=== PATIENT | female | born 1975 | race Two or more races ===

== ENCOUNTER 2019-12-15 14:30 | Inpatient (IN) | payer BC ==
[~2019-12-15] VITALS: Ht 160 cm; Wt 71.6 kg
[2019-12-15] MEDS ORDERED: SODIUM CHLORIDE 0.9% 500 ML IV ONE (14:43)
[2019-12-15 15:10] LABS: Eosinophils # (auto) 0 10 ^3/uL (0-0.8); Lymphocytes # (auto) 1.4 10 ^3/uL (0.4-5.4); Mean Corpuscular Hemoglobin 17.7 pg (28.0-32.0); Neutrophils # (auto) 3.4 10 ^3/uL (1.6-8.6); White Blood Cell 5.2 10^3/uL (4.4-10.8)
[2019-12-15 15:12] LABS: Basophils # (auto) 0 10 ^3/uL (0-0.2); Basophils % (auto) 0.8 % (0.0-2.0); Eosinophils % (auto) 0.5 % (0.0-7.0); Hematocrit 23.6 % (36.0-46.0); Lymphocytes % (auto) 26.9 % (10.0-50.0); Mean Corpuscular Hgb Conc. 29.2 g/dL (32.0-36.0); Mean Corpuscular Volume 60.5 fL (80.0-100.0); Monocytes # (auto) 0.3 10 ^3/uL (0-1.3); Monocytes % (auto) 6.4 % (0.0-12.0); Neutrophils % (auto) 65.4 % (37.0-80.0); Platelet Count (auto) 380 10^3/uL (140-450); Red Blood Cells 3.89 10^6/uL (4.0-5.20)
[2019-12-15 15:18] LABS: Red Cell Distribution Width 20.1 % (11.8-14.3)
[2019-12-15 15:21] LABS: Hemoglobin 6.9 g/dL (12.2-16.2)
[2019-12-15 15:25] LABS: INR 0.97 (0.9-1.15); Partial Thromboplastin Time 24.7 sec (23.64-32.05)
[2019-12-15 15:30] LABS: Albumin 4.1 g/dL (3.4-5.0); Calcium 8.4 mg/dL (8.5-10.1); Potassium 3.6 mmol/L (3.5-5.1)
[2019-12-15 15:34] LABS: BUN/Creatinine Ratio 25.6; Bilirubin, Total 0.4 mg/dL (0.2-1.0)
[2019-12-15] MEDS ORDERED: NITROGLYCERIN 0.4 MG SL TAB SL PRN ×2 (16:15→16:45)
[2019-12-15] MEDS ORDERED: MORPHINE SULF INJ 2 MG/ML SYRINGE 1ML IV PRN ×3 (16:15→16:45)
[2019-12-15] MEDS ORDERED: ONDANSETRON HCL 4 MG/2 ML VIAL IV PRN (16:45)
[2019-12-15] MEDS ORDERED: HYDROcodone-ACET 5/325MG TAB PO PRN (16:45)
[2019-12-15] MEDS ORDERED: LORazepam 0.5 MG TAB PO PRN (16:45)
[2019-12-15] MEDS ORDERED: DOCUSATE SOD 100 MG CAP PO PRN (16:45)
[2019-12-15 16:55] LABS: % Iron Saturation 3.1 % (15-50)
[2019-12-15] MEDS: SODIUM CHLORIDE 0.9% 1,000 ML IV SCH (17:00)
[2019-12-15 17:12] LABS: Folate (Folic Acid) 12.93 ng/mL (5.38-24)
[2019-12-15 17:16] LABS: Cholesterol 193 mg/dL (< 200); HDL Cholesterol 59 mg/dL (40-59); LDL Cholesterol 118 mg/dL (< 100); Triglycerides 136 mg/dL (< 150)
--- NOTE | 2019-12-15 17:40 | NUR ---
Telemetry admit from ER MELISSA SHELDON admitted to Telemetry unit. Patient oriented to Jeimy rodriguez RN, unit, room, bed, and unit policies regarding patient care and visiting hours. Instructed patient on POC, fall precautions and to call for assistance as needed. Patient verbalized understanding. Fall precautions in place with call light within reach.
[2019-12-15] MEDS ORDERED: FUROSEMIDE 20 MG/2 ML VIAL IV SCH (18:00)
[2019-12-15] MEDS ORDERED: PHEN1TAB64 PO (18:23)
[2019-12-15 18:31] VITALS: BP 106/65
--- NOTE | 2019-12-15 18:31 | NUR ---
Blood transfusion started per MD order Patient instructed on s/s to report to staff. Patient verbalized understanding. Patient denies SOB, CP, N/V, or pain. Respirations even and unlabored, no distress noted. Fall precautions in place with call light within reach.
[2019-12-15 18:51] VITALS: BP 110/68
--- NOTE | 2019-12-15 19:16 | NUR ---
Closing note/care endorsed to OSVALDO Zaragoza. Patient resting in bed with even and unlabored respirations, no distress noted. Blood transfusion infusing per MD order. Patient tolerating well. Patient denies s/s of blood transfusion reaction. Fall precautions in place with call light within reach.
--- NOTE | 2019-12-15 19:20 | NUR ---
Opening Shift Note Received report from Jeimy RILEY. Assumed care of patient, awake and alert with ongoing blood transfusion. No S/S of distress/SOB or pain. Instructed on POC and to call for assist PRN, will continue to monitor for changes Q1hr and PRN.
[2019-12-15] MEDS ORDERED: FUROSEMIDE 20 MG/2 ML VIAL IV ONE (20:00)
[2019-12-15 22:00] VITALS: BP 99/59
[2019-12-15 22:17] LABS: Urine Bacteria FEW /hpf (None Seen); Urine Blood Negative /uL (Negative); Urine Specific Gravity 1.011 (1.001-1.035); Urine WBC <1 /hpf (0 - 5)
[2019-12-15 22:32] LABS: Alcohol, Urine < 3.0 mg/dL (0-10); Amphetamine Screen, Urine NEGATIVE (NEGATIVE); Barbiturate Scree,Urine NEGATIVE (NEGATIVE); Benzodiazephine Screen, Urine NEGATIVE (NEGATIVE); Cannabinoid Screen, Urine NEGATIVE (NEGATIVE); Cocaine Screen, Urine NEGATIVE (NEGATIVE); Opiate Scree,Urine NEGATIVE (NEGATIVE); Phencyclidine Screen, Urine NEGATIVE (NEGATIVE)
[2019-12-15 22:42] VITALS: BP 112/58
--- NOTE | 2019-12-15 22:43 | NUR ---
Patient requested CBC to be drawn at 0500. Post transfusion vitals taken, within normal limit. Continue care.
[2019-12-16] MEDS ORDERED: ACETAMINOPHEN 325 MG TAB PO ONE (02:00)
[2019-12-16 05:00] VITALS: BP 100/59
[2019-12-16] MEDS: SODIUM CHLORIDE 0.9% 1,000 ML IV SCH (06:30)
[2019-12-16 07:15] LABS: Basophils # (auto) 0 10 ^3/uL (0-0.2); Eosinophils # (auto) 0 10 ^3/uL (0-0.8); Lymphocytes # (auto) 1.4 10 ^3/uL (0.4-5.4); Monocytes # (auto) 0.3 10 ^3/uL (0-1.3); Neutrophils # (auto) 2.4 10 ^3/uL (1.6-8.6); White Blood Cell 4.2 10^3/uL (4.4-10.8)
[2019-12-16 07:17] LABS: Basophils % (auto) 0.8 % (0.0-2.0); Eosinophils % (auto) 0.9 % (0.0-7.0); Hemoglobin 7.8 g/dL (12.2-16.2); Lymphocytes % (auto) 34.3 % (10.0-50.0); Mean Corpuscular Hemoglobin 19.6 pg (28.0-32.0); Mean Corpuscular Hgb Conc. 30.1 g/dL (32.0-36.0); Mean Corpuscular Volume 65.1 fL (80.0-100.0); Platelet Count (auto) 322 10^3/uL (140-450)
[2019-12-16 07:30] LABS: Red Cell Distribution Width 24.3 % (11.8-14.3)
[2019-12-16 07:31] LABS: Albumin 3.3 g/dL (3.4-5.0); Calcium 7.5 mg/dL (8.5-10.1); Magnesium 2.3 mg/dL (1.6-2.6); Potassium 3.6 mmol/L (3.5-5.1)
[2019-12-16 07:36] LABS: BUN/Creatinine Ratio 26.8; Bilirubin, Total 0.4 mg/dL (0.2-1.0); Phosphorus 3.2 mg/dL (2.5-4.90); Total Protein 6.8 g/dL (6.4-8.2)
[2019-12-16 07:42] LABS: % Iron Saturation 2.5 % (15-50)
[2019-12-16 07:52] LABS: INR 0.97 (0.9-1.15); Partial Thromboplastin Time 23.9 sec (23.64-32.05)
--- NOTE | 2019-12-16 08:00 | NUR ---
Morning note Patient resting in bed with even and unlabored respirations, no distress noted. Instructed patient on POC, fall precautions and to call for assistance as needed. Patient verbalized understanding. Fall precautions in place with call light within reach.
[2019-12-16 08:15] LABS: Ferritin 2.1 ng/mL (10-322); Folate (Folic Acid) 8.52 ng/mL (5.38-24)
[2019-12-16 09:00] VITALS: BP 104/61
--- NOTE | 2019-12-16 11:42 | NUR ---
Est energy needs 4267-0305 kcal (25-27 kcal/kg BW 71.6kg) est protein needs 58-72g (0.8-1g/kg BW 71.8kg) Will reassess jacin. Addendum: 12/16/19 at [address] Amended: Links added.
[2019-12-16] MEDS ORDERED: SODIUM FERR GLUC 125 MG in NS 100 ML IV SCH (12:00)
[2019-12-16] MEDS ORDERED: IRON SUCROSE COMPLEX 200 MG in SODIUM CHL 0.9% 100 ML IV SCH ×4 (12:00)
[2019-12-16] MEDS ORDERED: SODIUM CHL 0.9% IV SCH (12:00)
[2019-12-16] MEDS ORDERED: IRON SUCROSE COMPLEX IV SCH (12:00)
--- NOTE | 2019-12-16 12:05 | NUR ---
was at bedside - Dr. Castillo This RN was at bedside.
[2019-12-16] MEDS ORDERED: FER325T PO (12:14)
--- NOTE | 2019-12-16 12:25 | NUR ---
YEIMI discussed with MD Zander Julio
--- NOTE | 2019-12-16 12:40 | NUR ---
RE: Medication not available - called pharmacy Called pharmacy to notify that scheduled medication not available. Medication to be delivered to unit per pharmacist.
[2019-12-16 13:00] VITALS: BP 115/58
--- NOTE | 2019-12-16 13:16 | NUR ---
Patient resting in bed with even and unlabored respirations, no distress noted. Fall precautions in place with call light within reach.
--- NOTE | 2019-12-16 14:57 | NUR ---
Discharge Discharge education and paperwork provided to the patient per MD order. Patient verbalized understanding. IV removed with clean technique, catheter intact. Dressing applied. Patient tolerated, no trauma to site. Telemonitor removed and returned to telemonitor tech. Patient reports having all personal belongings. Respirations even and unlabored, no distress noted. Patient refused wheelchair. Patient ambulated with steady gait to hospital lobby.
== END 2019-12-16 15:00 | disposition home or self-care (01) | DRG 812 ==
LOC: ER 14:30 → TELE 14:31 → TELE-WESTW 17:40
PROVIDERS: ADMIT Hospitalist; ATTEND Internal Medicine
PROC: 30233N1 Transfusion of Nonautologous Red Blood Cells into Peripheral Vein, Percutaneous Approach (ICD-10-PCS; principal; 2019-12-15)
DX: D50.0 Iron deficiency anemia secondary to blood loss (chronic) (principal); N92.0 Excessive and frequent menstruation with regular cycle; Z80.0 Family history of malignant neoplasm of digestive organs; Z82.3 Family history of stroke; Z82.49 Family history of ischemic heart disease and other diseases of the circulatory system; Z97.5 Presence of (intrauterine) contraceptive device; Z83.3 Family history of diabetes mellitus; Z98.84 Bariatric surgery status
CPT/HCPCS: 36415; 76830; 76856; 80053; 80061; 80307; 81001; 82607; 82728; 82746; 83010; 83036; 83540; 83550; 83615; 83735; 84100; 84443; 84484; 85025; 85045; 85610; 85652; 85730; 86850; 86880; 86900; 86901; 86920; 87086; G0378; J1756

== ENCOUNTER → 2019-12-15 | Outpatient (CLI) | payer BC ==
[~2019-12-15] MED LIST: FER325T PO; PHEN1TAB64 PO
[2019-12-15 12:30] LABS: Basophils # (auto) 0 10 ^3/uL (0-0.2); Eosinophils # (auto) 0 10 ^3/uL (0-0.8); Eosinophils % (auto) 0.8 % (0.0-7.0); Monocytes # (auto) 0.3 10 ^3/uL (0-1.3); Neutrophils # (auto) 2.3 10 ^3/uL (1.6-8.6)
[2019-12-15 12:32] LABS: Basophils % (auto) 0.6 % (0.0-2.0); Hematocrit 22.2 % (36.0-46.0); Lymphocytes # (auto) 1.6 10 ^3/uL (0.4-5.4); Lymphocytes % (auto) 37.5 % (10.0-50.0); Mean Corpuscular Hemoglobin 17.5 pg (28.0-32.0); Mean Corpuscular Hgb Conc. 29.1 g/dL (32.0-36.0); Mean Corpuscular Volume 60.2 fL (80.0-100.0); Monocytes % (auto) 7.2 % (0.0-12.0); Neutrophils % (auto) 53.9 % (37.0-80.0); Platelet Count (auto) 357 10^3/uL (140-450); Red Blood Cells 3.69 10^6/uL (4.0-5.20); Red Cell Distribution Width 19.8 % (11.8-14.3); White Blood Cell 4.3 10^3/uL (4.4-10.8)
[2019-12-15 12:43] LABS: Urine Bacteria NONE SEEN /hpf (None Seen); Urine Blood Negative /uL (Negative); Urine Mucus FEW (None Seen); Urine Specific Gravity 1.026 (1.001-1.035); Urine WBC 1 /hpf (0 - 5)
[2019-12-15 12:55] LABS: Hemoglobin 6.5 g/dL (12.2-16.2)
[2019-12-15 13:04] LABS: Albumin 3.9 g/dL (3.4-5.0); BUN/Creatinine Ratio 31.1; Calcium 8.4 mg/dL (8.5-10.1); Magnesium 2.2 mg/dL (1.6-2.6); Potassium 3.4 mmol/L (3.5-5.1); Uric Acid 3.6 mg/dL (2.6-6.0)
[2019-12-15 13:07] LABS: Bilirubin, Total 0.5 mg/dL (0.2-1.0); Total Protein 7.7 g/dL (6.4-8.2)
[2019-12-15 13:11] LABS: Free T3 3.32 pg/mL (2.3-4.2); Free T4 (Free Thyroxine) 1.03 ng/dL (0.89-1.76)
== END | disposition home or self-care (01) ==
LOC: LAB 12:11
DX: Z00.00 Encounter for general adult medical examination without abnormal findings (principal); F51.01 Primary insomnia
CPT/HCPCS: 36415; 80053; 80061; 81001; 82306; 82607; 83036; 83540; 83735; 84439; 84443; 84481; 84550; 85025

== ENCOUNTER → 2019-12-22 | Outpatient (CLI) | payer BC ==
[~2019-12-22] MED LIST changes: -PHEN1TAB64 PO; +PHEN37.563 PO
[2019-12-22 16:48] LABS: Basophils # (auto) 0 10 ^3/uL (0-0.2); Basophils % (auto) 0.8 % (0.0-2.0); Eosinophils # (auto) 0.1 10 ^3/uL (0-0.8); Hemoglobin 8.8 g/dL (12.2-16.2); Monocytes # (auto) 0.5 10 ^3/uL (0-1.3)
[2019-12-22 16:50] LABS: Hematocrit 29.4 % (36.0-46.0); Mean Corpuscular Volume 66.6 fL (80.0-100.0); Monocytes % (auto) 8.2 % (0.0-12.0); Platelet Count (auto) 310 10^3/uL (140-450); Red Blood Cells 4.42 10^6/uL (4.0-5.20); White Blood Cell 5.6 10^3/uL (4.4-10.8)
[2019-12-22 16:53] LABS: Red Cell Distribution Width 27.9 % (11.8-14.3)
[2019-12-22 17:06] LABS: Albumin 3.6 g/dL (3.4-5.0); BUN/Creatinine Ratio 30.4; Calcium 7.7 mg/dL (8.5-10.1); Potassium 3.3 mmol/L (3.5-5.1)
[2019-12-22 17:08] LABS: Bilirubin, Total 0.3 mg/dL (0.2-1.0); Total Protein 7.4 g/dL (6.4-8.2)
[2019-12-22 17:28] LABS: Ferritin 19.9 ng/mL (10-322)
[2019-12-22 17:29] LABS: Folate (Folic Acid) 9.39 ng/mL (5.38-24)
== END | disposition home or self-care (01) ==
LOC: LAB 16:25
DX: D64.9 Anemia, unspecified (principal)
CPT/HCPCS: 36415; 80053; 82607; 82728; 82746; 83540; 85025; 85045

== ENCOUNTER → 2020-02-03 | Outpatient (CLI) | payer OTHER | END | disposition home or self-care (01) | LOC: LAB 17:16 | PROVIDERS: ATTEND Nurse Practitioner Family | DX: U07.1 COVID-19 (principal) ==

== ENCOUNTER → 2020-05-08 | Outpatient (CLI) | payer BC ==
[2020-05-08 08:33] LABS: Basophils # (auto) 0 10 ^3/uL (0-0.2); Basophils % (auto) 0.8 % (0.0-2.0); Eosinophils # (auto) 0 10 ^3/uL (0-0.8); Hemoglobin 8.9 g/dL (12.2-16.2); Lymphocytes # (auto) 1.6 10 ^3/uL (0.4-5.4); Monocytes # (auto) 0.3 10 ^3/uL (0-1.3)
[2020-05-08 08:37] LABS: Eosinophils % (auto) 1.2 % (0.0-7.0); Hematocrit 28.7 % (36.0-46.0); Lymphocytes % (auto) 43.1 % (10.0-50.0); Mean Corpuscular Hemoglobin 22.7 pg (28.0-32.0); Mean Corpuscular Hgb Conc. 31.1 g/dL (32.0-36.0); Mean Corpuscular Volume 73.1 fL (80.0-100.0); Monocytes % (auto) 7.9 % (0.0-12.0); Neutrophils # (auto) 1.7 10 ^3/uL (1.6-8.6); Platelet Count (auto) 258 10^3/uL (140-450); Red Blood Cells 3.93 10^6/uL (4.0-5.20); Red Cell Distribution Width 18.3 % (11.8-14.3); White Blood Cell 3.7 10^3/uL (4.4-10.8)
[2020-05-08 08:43] LABS: Calcium 8.4 mg/dL (8.5-10.1); Magnesium 2.1 mg/dL (1.6-2.6); Potassium 3.5 mmol/L (3.5-5.1); Uric Acid 2.8 mg/dL (2.6-6.0)
[2020-05-08 08:44] LABS: Urine Bacteria MANY /hpf (None Seen); Urine Blood TRACE /uL (Negative); Urine Mucus MODERATE (None Seen); Urine WBC 60 /hpf (0 - 5)
[2020-05-08 08:48] LABS: BUN/Creatinine Ratio 23.5; Bilirubin, Total 0.4 mg/dL (0.2-1.0); Total Protein 7.6 g/dL (6.4-8.2)
[2020-05-08 08:50] LABS: INR 0.97 (0.9-1.15)
[2020-05-08 09:08] LABS: Free T4 (Free Thyroxine) 0.87 ng/dL (0.89-1.76)
[2020-05-08 09:09] LABS: Free T3 3.41 pg/mL (2.3-4.2); T3 Total 0.97 ng/mL (0.60-1.81)
== END | disposition home or self-care (01) ==
LOC: LAB 07:58
DX: Z13.21 Encounter for screening for nutritional disorder (principal); Z13.29 Encounter for screening for other suspected endocrine disorder; Z13.228 Encounter for screening for other metabolic disorders; D51.0 Vitamin B12 deficiency anemia due to intrinsic factor deficiency; R53.1 Weakness; E03.9 Hypothyroidism, unspecified; N39.0 Urinary tract infection, site not specified; R73.09 Other abnormal glucose; Z87.440 Personal history of urinary (tract) infections; Z79.890 Hormone replacement therapy
CPT/HCPCS: 36415; 80053; 80061; 81001; 82306; 82607; 83036; 83540; 83615; 83735; 84439; 84443; 84480; 84481; 84550; 85025; 85610; 87086

== ENCOUNTER → 2020-08-23 | Outpatient (CLI) | payer BC ==
[2020-08-23 08:45] LABS: INR 0.97 (0.9-1.15)
[2020-08-23 09:04] LABS: Potassium 3.7 mmol/L (3.5-5.1)
[2020-08-23 09:11] LABS: Free T4 (Free Thyroxine) 0.82 ng/dL (0.89-1.76)
[2020-08-23 09:12] LABS: Free T3 3.14 pg/mL (2.3-4.2); T3 Total 0.93 ng/mL (0.60-1.81)
[2020-08-23 09:13] LABS: Albumin 3.7 g/dL (3.4-5.0); BUN/Creatinine Ratio 24.6; Bilirubin, Total 0.4 mg/dL (0.2-1.0); Calcium 8.1 mg/dL (8.5-10.1); Folate (Folic Acid) 10.89 ng/mL (5.38-24); Phosphorus 2.8 mg/dL (2.5-4.90); Total Protein 7.3 g/dL (6.4-8.2); Uric Acid 2.9 mg/dL (2.6-6.0)
== END | disposition home or self-care (01) ==
LOC: LAB 07:54
PROVIDERS: ATTEND Internal Medicine
DX: Z13.220 Encounter for screening for lipoid disorders (principal); R74.02 Elevation of levels of lactic acid dehydrogenase [LDH]; R82.90 Unspecified abnormal findings in urine; E07.9 Disorder of thyroid, unspecified
CPT/HCPCS: 36415; 80053; 80061; 82306; 82607; 82746; 83036; 83540; 83615; 84100; 84439; 84443; 84480; 84481; 84550; 85018; 85610

== ENCOUNTER → 2020-09-11 | Outpatient (CLI) | payer BC ==
[2020-09-11 11:17] LABS: Basophils # (auto) 0 10 ^3/uL (0-0.2); Eosinophils # (auto) 0 10 ^3/uL (0-0.8); Lymphocytes # (auto) 1.8 10 ^3/uL (0.4-5.4); Mean Corpuscular Hgb Conc. 30.2 g/dL (32.0-36.0); Neutrophils # (auto) 3.5 10 ^3/uL (1.6-8.6); Platelet Count (auto) 215 10^3/uL (140-450); White Blood Cell 5.7 10^3/uL (4.4-10.8)
[2020-09-11 11:19] LABS: Basophils % (auto) 0.6 % (0.0-2.0); Eosinophils % (auto) 0.6 % (0.0-7.0); Hematocrit 26.9 % (36.0-46.0); Hemoglobin 8.1 g/dL (12.2-16.2); Lymphocytes % (auto) 31.6 % (10.0-50.0); Mean Corpuscular Hemoglobin 19.6 pg (28.0-32.0); Mean Corpuscular Volume 64.7 fL (80.0-100.0); Monocytes # (auto) 0.4 10 ^3/uL (0-1.3); Monocytes % (auto) 6.3 % (0.0-12.0); Neutrophils % (auto) 60.9 % (37.0-80.0); Nucleated Red Blood Cells % 0.1 %; Red Blood Cells 4.15 10^6/uL (4.0-5.20)
[2020-09-11 11:56] LABS: Leuteinizing Hormone 0.9 IU/L
[2020-09-11 11:57] LABS: Follicle Stimulating Hormone 1.81 IU/L (SEE BELOW)
== END | disposition home or self-care (01) ==
LOC: LAB 10:47
PROVIDERS: ATTEND Obstetrics & Gynecology
DX: N93.9 Abnormal uterine and vaginal bleeding, unspecified (principal)
CPT/HCPCS: 36415; 82670; 83001; 83002; 84403; 84443; 85025

== ENCOUNTER → 2020-09-24 | Day surgery (SDC) | payer BC ==
[2020-09-18 13:02] LABS: Basophils # (auto) 0 10 ^3/uL (0-0.2); Mean Corpuscular Hgb Conc. 30.6 g/dL (32.0-36.0); Monocytes # (auto) 0.4 10 ^3/uL (0-1.3); Neutrophils # (auto) 3.1 10 ^3/uL (1.6-8.6)
[2020-09-18 13:04] LABS: Basophils % (auto) 0.8 % (0.0-2.0); Eosinophils # (auto) 0 10 ^3/uL (0-0.8); Eosinophils % (auto) 0.9 % (0.0-7.0); Hematocrit 24.4 % (36.0-46.0); Hemoglobin 7.5 g/dL (12.2-16.2); Lymphocytes # (auto) 1.7 10 ^3/uL (0.4-5.4); Lymphocytes % (auto) 32.9 % (10.0-50.0); Mean Corpuscular Hemoglobin 19.7 pg (28.0-32.0); Mean Corpuscular Volume 64.6 fL (80.0-100.0); Monocytes % (auto) 7.2 % (0.0-12.0); Neutrophils % (auto) 58.2 % (37.0-80.0); Nucleated Red Blood Cells % 0.1 %; Platelet Count (auto) 296 10^3/uL (140-450); Red Blood Cells 3.78 10^6/uL (4.0-5.20); Red Cell Distribution Width 19.9 % (11.8-14.3); White Blood Cell 5.3 10^3/uL (4.4-10.8)
[2020-09-18 13:18] LABS: Urine Bacteria MOD /hpf (None Seen); Urine Blood Negative /uL (Negative); Urine Mucus FEW (None Seen); Urine Specific Gravity 1.026 (1.001-1.035); Urine WBC 1 /hpf (0 - 5)
[2020-09-18 13:30] LABS: INR 0.93 (0.9-1.15); Partial Thromboplastin Time 23.5 sec (23.0-31.2)
[2020-09-18 13:55] LABS: Albumin 3.6 g/dL (3.4-5.0); Calcium 7.8 mg/dL (8.5-10.1); Potassium 3.8 mmol/L (3.5-5.1)
[2020-09-18 13:59] LABS: BUN/Creatinine Ratio 27.4; Bilirubin, Total 0.3 mg/dL (0.2-1.0); Total Protein 7.1 g/dL (6.4-8.2)
[~2020-09-24] VITALS: Ht 160 cm; Wt 85.3 kg
[~2020-09-24] MED LIST changes: +DexAMETHasone SOD PHOS 10MG/1ML VIAL INJ ONE; +EPINEPHrine HCL 1 MG/10 ML SYRG ONE; +FAMOTIDINE (10MG/ML) 2ML VL IV ONE; +GLYCOPYRROLATE 0.2 MG/ML 1ML VIAL ONE; +HYDROmorphone HCL 2 MG/ML VL IV PRN; +KETOROLAC TROMETH 30 MG/ML 1ML VIAL ONE; +LACTATED RINGER'S 1,000 ML IV SCH; +LIDOCAINE 1% HCL (LOCAL ANESTH.) INJ 20ML MDV ONE; +LIDOCAINE 2% (LOCAL ANESTH.) PF 5ml SDV ONE; +MEPERIDINE HCL (25 MG/ML) 1ML VIAL ONE; +METOCLOPRAMIDE HCL 5MG/ml INJ 2ml VIAL IV PRN; +MIDAZOLAM HCL 1MG/1ML-2 ML VIAL ONE; +MORPHINE SULFATE 4 MG/ML SYR/VIAL IV PRN; +ONDANSETRON HCL 4 MG/2 ML VIAL IV PRN; +ONDANSETRON HCL 4 MG/2 ML VIAL ONE; -PHEN37.563 PO; +PROPOFOL 10 MG/ML 20 ML IV ONE; +ROCURONIUM 10MG/ML 10ML VIAL IV ONE; +SODIUM CHLORIDE LOCK 0 ML ONE; +SUCCINYLCHOLINE CHLORIDE 20 MG/ML 10ML VIAL IV ONE; +ceFAZolin 1GM VL ONE; +ceFAZolin 1GM/50ML 50 ML IV ONE; +fentaNYL CITRATE 100 MCG/2 ML VL ONE
[2020-09-24 13:27] LABS: Basophils # (auto) 0 10 ^3/uL (0-0.2); Eosinophils # (auto) 0.1 10 ^3/uL (0-0.8); Hematocrit 31.9 % (36.0-46.0); Lymphocytes # (auto) 2.3 10 ^3/uL (0.4-5.4); Mean Corpuscular Hemoglobin 22.3 pg (28.0-32.0); Monocytes # (auto) 0.4 10 ^3/uL (0-1.3); Monocytes % (auto) 7.7 % (0.0-12.0); Neutrophils # (auto) 2.4 10 ^3/uL (1.6-8.6)
[2020-09-24 13:29] LABS: Basophils % (auto) 0.6 % (0.0-2.0); Lymphocytes % (auto) 44.1 % (10.0-50.0); Mean Corpuscular Hgb Conc. 31.2 g/dL (32.0-36.0); Mean Corpuscular Volume 71.5 fL (80.0-100.0); Neutrophils % (auto) 46.6 % (37.0-80.0); Platelet Count (auto) 246 10^3/uL (140-450); Red Blood Cells 4.46 10^6/uL (4.0-5.20); White Blood Cell 5.2 10^3/uL (4.4-10.8)
[2020-09-24 14:50] VITALS: BP 119/55
== END | disposition home or self-care (01) ==
LOC: SUR 09-21 06:06
PROVIDERS: ATTEND Obstetrics & Gynecology
DX: D64.9 Anemia, unspecified (principal); O46.8X1 Other antepartum hemorrhage, first trimester; Z98.890 Other specified postprocedural states; Z20.822 Contact with and (suspected) exposure to COVID-19; Z79.899 Other long term (current) drug therapy; Z98.84 Bariatric surgery status; Z3A.09 9 weeks gestation of pregnancy
CPT/HCPCS: 36415; 36430; 58563; 80053; 81001; 84702; 85025; 85610; 85730; 86850; 86900; 86901; 86920; J0330; J0690; J1100; J1885; J2001; J2175; J2250; J2405; J2704; J3010; J3490; P9016; U0003

== ENCOUNTER → 2020-11-02 | Outpatient (CLI) | payer BC ==
[~2020-11-02] MED LIST changes: -DexAMETHasone SOD PHOS 10MG/1ML VIAL INJ ONE; -EPINEPHrine HCL 1 MG/10 ML SYRG ONE; -FAMOTIDINE (10MG/ML) 2ML VL IV ONE; -GLYCOPYRROLATE 0.2 MG/ML 1ML VIAL ONE; -HYDROmorphone HCL 2 MG/ML VL IV PRN; -KETOROLAC TROMETH 30 MG/ML 1ML VIAL ONE; -LACTATED RINGER'S 1,000 ML IV SCH; -LIDOCAINE 1% HCL (LOCAL ANESTH.) INJ 20ML MDV ONE; -LIDOCAINE 2% (LOCAL ANESTH.) PF 5ml SDV ONE; -MEPERIDINE HCL (25 MG/ML) 1ML VIAL ONE; -METOCLOPRAMIDE HCL 5MG/ml INJ 2ml VIAL IV PRN; -MIDAZOLAM HCL 1MG/1ML-2 ML VIAL ONE; -MORPHINE SULFATE 4 MG/ML SYR/VIAL IV PRN; -ONDANSETRON HCL 4 MG/2 ML VIAL IV PRN; -ONDANSETRON HCL 4 MG/2 ML VIAL ONE; -PROPOFOL 10 MG/ML 20 ML IV ONE; -ROCURONIUM 10MG/ML 10ML VIAL IV ONE; -SODIUM CHLORIDE LOCK 0 ML ONE; -SUCCINYLCHOLINE CHLORIDE 20 MG/ML 10ML VIAL IV ONE; -ceFAZolin 1GM VL ONE; -ceFAZolin 1GM/50ML 50 ML IV ONE; -fentaNYL CITRATE 100 MCG/2 ML VL ONE
[2020-11-02 10:57] LABS: Basophils # (auto) 0 10 ^3/uL (0-0.2); Eosinophils # (auto) 0.1 10 ^3/uL (0-0.8); Hemoglobin 11.3 g/dL (12.2-16.2); Lymphocytes # (auto) 1.9 10 ^3/uL (0.4-5.4); Monocytes # (auto) 0.4 10 ^3/uL (0-1.3)
[2020-11-02 10:59] LABS: Basophils % (auto) 0.6 % (0.0-2.0); Hematocrit 35.1 % (36.0-46.0); Lymphocytes % (auto) 33.4 % (10.0-50.0); Mean Corpuscular Hemoglobin 24.4 pg (28.0-32.0); Mean Corpuscular Hgb Conc. 32.2 g/dL (32.0-36.0); Mean Corpuscular Volume 75.8 fL (80.0-100.0); Monocytes % (auto) 6.8 % (0.0-12.0); Neutrophils # (auto) 3.3 10 ^3/uL (1.6-8.6); Neutrophils % (auto) 58.2 % (37.0-80.0); Red Blood Cells 4.63 10^6/uL (4.0-5.20); White Blood Cell 5.6 10^3/uL (4.4-10.8)
[2020-11-02 11:04] LABS: Urine Bacteria NONE SEEN /hpf (None Seen); Urine Blood Negative /uL (Negative); Urine Specific Gravity 1.018 (1.001-1.035); Urine WBC 1 /hpf (0 - 5)
[2020-11-02 11:06] LABS: Red Cell Distribution Width 28.3 % (11.8-14.3)
[2020-11-02 11:19] LABS: % Iron Saturation 6.5 % (15-50)
[2020-11-02 11:20] LABS: Albumin 3.7 g/dL (3.4-5.0); Calcium 8.3 mg/dL (8.5-10.1); Potassium 3.7 mmol/L (3.5-5.1)
[2020-11-02 11:25] LABS: BUN/Creatinine Ratio 15.5; Bilirubin, Total 0.4 mg/dL (0.2-1.0); Phosphorus 2.9 mg/dL (2.5-4.90); Total Protein 7.3 g/dL (6.4-8.2); Uric Acid 3.4 mg/dL (2.6-6.0)
[2020-11-02 11:26] LABS: Ferritin 3.3 ng/mL (10-322)
[2020-11-02 11:27] LABS: Free T3 3.47 pg/mL (2.3-4.2); Free T4 (Free Thyroxine) 0.92 ng/dL (0.89-1.76)
[2020-11-02 11:28] LABS: Folate (Folic Acid) 11.61 ng/mL (5.38-24); T3 Total 1.04 ng/mL (0.60-1.81)
== END | disposition home or self-care (01) ==
LOC: LAB 10:28
PROVIDERS: ATTEND Family Medicine
DX: Z00.00 Encounter for general adult medical examination without abnormal findings (principal)
CPT/HCPCS: 36415; 80053; 80061; 81001; 82306; 82607; 82728; 82746; 83540; 83550; 83615; 84100; 84439; 84443; 84480; 84481; 84550; 85025; 85045; 86880; 87086